=== PATIENT | male | born 1965 | race Caucasian/White ===

== ENCOUNTER 2023-10-13 20:10 | Inpatient (IN) | payer MEDICAID ==
[~2023-10-13] VITALS: Ht 177.8 cm; Wt 98.9 kg
[2023-10-13 20:12] VITALS: BP_SYST 144; PULSE 96; RESP 16; TEMP 99; O2SAT 97
[2023-10-13 20:55] LABS: BASOPHILS % (AUTO) 0.3 % (0.0-2.0); EOSINOPHILS # (AUTO) 0.2 K/uL (0.0-0.4); EOSINOPHILS % (AUTO) 3.3 % (0.0-4.0); HEMATOCRIT 41.8 % (36-54); HEMOGLOBIN 14.5 g/dL (14.0-18.0); LYMPHOCYTES # (AUTO) 1.4 K/uL (1.0-5.5); LYMPHOCYTES % (AUTO) 19.1 % (20.5-51.5); MEAN CORPUSCULAR HEMOGLOBIN 28 pg (27-31); MEAN CORPUSCULAR HGB CONC 35 % (32-36); MEAN CORPUSCULAR VOLUME 79 fL (79.0-98.0); MONOCYTES # (AUTO) 0.7 K/uL (0.0-1.0); MONOCYTES % (AUTO) 9.1 % (1.7-9.3); NEUTROPHILS # (AUTO) 5.1 K/uL (1.8-7.7); NEUTROPHILS % (AUTO) 68.2 % (40.0-70.0); PLATELET COUNT (AUTO) 339 K/uL (130-430); RED BLOOD CELL COUNT(AUTO) 5.26 MIL/uL (4.2-6.2); RED CELL DISTRIBUTION WIDTH 13.3 % (9.0-15.0); WHITE BLOOD COUNT (AUTO) 7.4 K/uL (4.8-10.8)
[2023-10-13 20:58] LABS: ANION GAP 11 (5-15); CALCIUM 8.8 mg/dL (8.4-11.0); CARBON DIOXIDE 25 mmol/L (23-29); CHLORIDE 104 mmol/L (98-107); CREATININE 0.95 mg/dL (0.55-1.30); GFR AFRICAN AMERICAN 105 mL/min (>90); GLUCOSE 280 mg/dL (74-106); POTASSIUM 3.6 mmol/L (3.5-5.1); SODIUM SERUM 140 mmol/L (136-145); UREA NITROGEN, BLOOD 13 mg/dL (8-21)
[2023-10-13 20:59] LABS: GFR NON AFRICAN-AMERICAN 87 mL/min (>90)
[2023-10-13] MEDS: MORPHINE 2 MG/ML INJ. SYRINGE IVP ONE (21:02)
[2023-10-13 21:06] LABS: SALICYLATE 2 mg/dL (3-30)
[2023-10-13] MEDS: NITROGLYCERIN 0.4 MG TAB.SUBL SL ONE (21:38)
[2023-10-13] MEDS ORDERED: METF-381 PO (22:43)
[2023-10-13] MEDS ORDERED: GABA-331 PO (22:43)
[2023-10-13] MEDS ORDERED: ASPI-1393 PO (22:43)
[2023-10-13] MEDS ORDERED: METO25TA6 PO (22:43)
[2023-10-13] MEDS ORDERED: CLOP75TA32 PO (22:43)
[2023-10-14 01:40] VITALS: BP_SYST 180; PULSE 94; RESP 18; TEMP 98
[2023-10-14] MEDS: METOPROLOL TARTRATE 50 MG TABLET PO SCH (02:01)
[2023-10-14 02:20] VITALS: O2SAT 98
[2023-10-14 04:00] VITALS: BP_SYST 140; PULSE 94; RESP 18; TEMP 98; O2SAT 99
[2023-10-14 08:00] VITALS: BP_SYST 163; PULSE 89; RESP 20; TEMP 98; O2SAT 93; O2SAT 95
[2023-10-14] MEDS: cloNIDine HCL 0.2 MG TABLET PO PRN (08:47)
[2023-10-14] MEDS ORDERED: ACETAMINOPHEN 325 MG TABLET PO PRN (14:15)
[2023-10-14] MEDS ORDERED: HYDROcodone/ACETAMIN 5-325 MG TAB (NORCO/ VICODIN) PO PRN (14:15)
[2023-10-14] MEDS ORDERED: HYDROcodone/ACETAMIN 10-325 MG TAB PO PRN (14:15)
[2023-10-14] MEDS ORDERED: ONDANSETRON HCL 4 MG/2 ML VIAL IVP PRN (14:15)
[2023-10-14] MEDS ORDERED: LORazepam 2 MG/ML VIAL IVP PRN (14:15)
[2023-10-14] MEDS ORDERED: NALOXONE HCL 0.4 MG/ML AMP (NARCAN) IVP PRN ×2 (14:15)
[2023-10-14] MEDS ORDERED: CLOPIDOGREL BISULFATE 75 MG TABLET PO ONE (15:00)
[2023-10-14] MEDS ORDERED: ASPIRIN 81 MG TABLET(ECOTRIN) PO ONE (15:00)
[2023-10-14] MEDS ORDERED: metFORMIN HCL 500 MG TABLET PO SCH (18:00)
[2023-10-14] MEDS ORDERED: METOPROLOL TARTRATE 25 MG TABLET PO SCH (21:00)
[2023-10-14] MEDS ORDERED: NORMAL SALINE 5 ML DISP.SYRIN IVF SCH (22:00)
[2023-10-15] MEDS ORDERED: ASPIRIN 81 MG TABLET(ECOTRIN) PO SCH (09:00)
[2023-10-15] MEDS ORDERED: CLOPIDOGREL BISULFATE 75 MG TABLET PO SCH (09:00)
== END 2023-10-14 14:30 | disposition left against medical advice (07) | DRG 198 ==
LOC: SED 20:10 → STU 22:30
PROVIDERS: ADMIT Preventive Medicine Preventive Medicine/Occupational Environmental Medicine; ATTEND Preventive Medicine Preventive Medicine/Occupational Environmental Medicine
DX: R07.89 Other chest pain (principal); I25.10 Atherosclerotic heart disease of native coronary artery without angina pectoris; E11.65 Type 2 diabetes mellitus with hyperglycemia; I10 Essential (primary) hypertension; Z53.29 Procedure and treatment not carried out because of patient's decision for other reasons; I25.2 Old myocardial infarction; Z79.82 Long term (current) use of aspirin; Z79.899 Other long term (current) drug therapy; Z88.8 Allergy status to other drugs, medicaments and biological substances
CPT/HCPCS: 36415; 80048; 84484; 85025; 93005; 96374; 99285; G0378; G0481; J2270